=== PATIENT | female | born 1950 | race Caucasian/White ===

== ENCOUNTER → 2016-12-14 | Outpatient (CLI) | payer MEDICARE, OTHER ==
[~2016-12-14] MED LIST: ALPR.5T PO; DICL100G20 TOP; DICLOFENAC; FLUO20CA25 PO; OMEP20CA12 PO; TRAM50TA2 PO; TRAZ150T42 PO
--- NOTE | 2016-12-14 11:44 | Diagnostic Imaging Report ---
EXAMINATION: Ultrasound of the right shoulder. INDICATION: Lump. FINDINGS: There is a 5.3 x 2.3 x 4.9 cm mass anterior to the right proximal humerus. There is question of internal vascularity at its margin but it is uncertain if it is within this lesion. This could be related to hemorrhage or debris distending the subdeltoid bursa versus a solid mass. The margins appear lobulated and well defined, in favor of a nonaggressive process. IMPRESSION: Indeterminate 5.3 cm mass anterior to the proximal right humerus. Better evaluation with an MRI of the shoulder would be recommended. Dictated by: Dictated on workstation # [id number]
== END ==
LOC: RAD 10:52
PROVIDERS: ATTEND Family Medicine
DX: M89.9 Disorder of bone, unspecified (principal); N28.9 Disorder of kidney and ureter, unspecified
CPT/HCPCS: 76881

== ENCOUNTER → 2016-12-14 | Outpatient (CLI) | payer MEDICARE, OTHER ==
[~2016-12-14] MED LIST changes: +GADOBUTROL 10 MMOL/10 ML (GADAVIST) VIAL IV ONE
[2016-12-14 16:08] LABS: BLOOD UREA NITROGEN 9 MG/DL (7-18); BUN/CREATININE RATIO 10; CREATININE SERUM 0.87 MG/DL (0.60-1.30); GFR ESTIMATED > 60
--- NOTE | 2016-12-14 18:30 | Diagnostic Imaging Report ---
PROCEDURE: MRI upper extremity any joint with and without contrast right. TECHNIQUE: Multiplanar, multisequence pre and post contrast-enhanced MRI of the right upper extremity was accomplished. INDICATION: Further evaluation of mass in the anterior aspect of the right upper arm. COMPARISON: Ultrasound performed earlier same day. FINDINGS: There is a fatty mass located within the anterior aspect of the deltoid muscle. This mass has an ovoid configuration and measures 6.5 x 4.0 x 2.7 cm (cc x AP x TV). There is a single thin hairline septation in the inferior aspect of the mass, which does not enhance on postcontrast imaging. No solid nodular enhancement associated with the mass. 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 Deep and inferior margin of the lipoma drapes over the humerus. There is no destruction of the anterior humeral cortex. No focal osseous lesion. No regional lymphadenopathy. Imaging was tailored to evaluate the mass, and not optimized for evaluation of the remainder of the shoulder structures. Allowing for this, there is no high-grade partial or full-thickness rotator cuff tear. Supraspinatus tendinopathy is present. Long head of the biceps is intact. No evidence of displaced glenoid labral tear. There are degenerative changes in the glenohumeral joint inferiorly, which are characterized by subcortical cystic change in the glenoid. IMPRESSION: 1. The palpable mass corresponds to a benign appearing intramuscular fatty tumor located within the anterior aspect of the deltoid. 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 No enhancing soft tissue features to suggest liposarcoma. Consider consultation with an orthopedic oncologist for potential surgical management. Dictated by: Dictated on workstation # [id number]
== END ==
LOC: RAD 15:35
PROVIDERS: ATTEND Family Medicine
DX: D49.89 Neoplasm of unspecified behavior of other specified sites (principal); N28.9 Disorder of kidney and ureter, unspecified
CPT/HCPCS: 36415; 73223; 82565; 84520

== ENCOUNTER → 2017-02-19 | Outpatient (CLI) | payer MEDICARE, OTHER ==
[~2017-02-19] MED LIST changes: -GADOBUTROL 10 MMOL/10 ML (GADAVIST) VIAL IV ONE
--- NOTE | 2017-02-19 17:13 | Diagnostic Imaging Report ---
PROCEDURE: Lung cancer screening CT chest without contrast. TECHNIQUE: Multiple contiguous axial images were obtained through the chest without the use of intravenous contrast. This is performed with a low-dose protocol. INDICATION: Currently asymptomatic patient with 50 pack years history of smoking Comparison: 02/24/2015 Findings: Upper lobe predominant emphysema is seen in both lungs. There is no lung mass or suspicious nodule seen. The heart size is normal. There is no pericardial or pleural effusion. No mediastinal mass. No axillary lymphadenopathy is seen. The osseous structures demonstrate degenerative changes. IMPRESSION: Upper lobe predominant emphysema. No suspicious nodule seen. Lung Rads Category 2. Benign findings. Recommendations: Annual screening low-dose CT scan. Dictated by: Dictated on workstation # [id number]
== END ==
LOC: RAD 13:55
PROVIDERS: ATTEND Family Medicine
DX: Z12.2 Encounter for screening for malignant neoplasm of respiratory organs (principal); Z87.891 Personal history of nicotine dependence; J43.9 Emphysema, unspecified

== ENCOUNTER → 2018-09-23 | Outpatient (CLI) | payer MEDICARE, OTHER ==
[2018-09-23 09:31] LABS: BASOPHILS # (AUTO) 0.1 10^3/uL (0.0-0.1); BASOPHILS % (AUTO) 1 % (0-10); EOSINOPHILS # (AUTO) 0.3 10^3/uL (0.0-0.3); EOSINOPHILS % (AUTO) 3 % (0-10); HEMATOCRIT 42 % (35-52); HEMOGLOBIN 14.5 G/DL (11.5-16.0); LYMPHOCYTES # (AUTO) 2.5 X 10^3 (1.0-4.0); LYMPHOCYTES % (AUTO) 24 % (12-44); MEAN CORPUSCULAR HEMOGLOBIN 32 PG (25-34); MEAN CORPUSCULAR HGB CONC 35 G/DL (32-36); MEAN CORPUSCULAR VOLUME 93 FL (80-99); MEAN PLATELET VOLUME 8.8 FL (7.4-10.4); MONOCYTES # (AUTO) 0.8 X 10^3 (0.0-1.0); MONOCYTES % (AUTO) 8 % (0-12); NEUTROPHILS # (AUTO) 6.8 X 10^3 (1.8-7.8); NEUTROPHILS % (AUTO) 65 % (42-75); PLATELET COUNT 371 10^3/uL (130-400); RED BLOOD COUNT 4.52 10^6/uL (4.35-5.85); RED CELL DISTRIBUTION WIDTH 14.7 % (10.0-14.5); WHITE BLOOD COUNT 10.5 10^3/uL (4.3-11.0)
[2018-09-23 09:51] LABS: ALBUMIN 3.9 GM/DL (3.2-4.5); BILIRUBIN,TOTAL 0.6 MG/DL (0.1-1.0); CALCIUM 9.4 MG/DL (8.5-10.1); POTASSIUM 3.8 MMOL/L (3.6-5.0); TOTAL PROTEIN 6.5 GM/DL (6.4-8.2)
== END ==
LOC: LAB 09:15
PROVIDERS: ATTEND Family Medicine
DX: R53.83 Other fatigue (principal); R10.9 Unspecified abdominal pain
CPT/HCPCS: 36415; 80053; 85025

== ENCOUNTER → 2020-09-19 | Outpatient (CLI) | payer MEDICARE, OTHER ==
[~2020-09-19] MED LIST changes: +CATHETER FLUSH 10 ML SYR IV PRN; +HOLD METFORMIN - RECEIVED CONTRAST 20 ML VIAL IV SCH; +IOHEXOL 350 MG/ML 100 ML (OMNIPAQUE 350) VIAL IV ONE; +NS 100 ML (IVPB) BAG IV ONE
[2020-09-19 13:14] LABS: BASOPHILS % (AUTO) 1 % (0-10); EOSINOPHILS # (AUTO) 0.4 10^3/uL (0.0-0.3); EOSINOPHILS % (AUTO) 6 % (0-10); HEMATOCRIT 37 % (35-52); HEMOGLOBIN 11.8 g/dL (11.5-16.0); LYMPHOCYTES # (AUTO) 2.1 10^3/uL (1.0-4.0); LYMPHOCYTES % (AUTO) 32 % (12-44); MEAN CORPUSCULAR HEMOGLOBIN 31 pg (25-34); MEAN CORPUSCULAR HGB CONC 32 g/dL (32-36); MEAN CORPUSCULAR VOLUME 96 fL (80-99); MONOCYTES # (AUTO) 0.5 10^3/uL (0.0-1.0); MONOCYTES % (AUTO) 8 % (0-12); NEUTROPHILS # (AUTO) 3.6 10^3/uL (1.8-7.8); NEUTROPHILS % (AUTO) 54 % (42-75); PLATELET COUNT 332 10^3/uL (130-400); WHITE BLOOD COUNT 6.7 10^3/uL (4.3-11.0)
[2020-09-19 13:33] LABS: ALBUMIN 3.9 GM/DL (3.2-4.5); BILIRUBIN,TOTAL 0.4 MG/DL (0.1-1.0); CALCIUM 9.6 MG/DL (8.5-10.1); CREATININE SERUM 1.05 MG/DL (0.60-1.30); POTASSIUM 4.1 MMOL/L (3.6-5.0); TOTAL PROTEIN 7.3 GM/DL (6.4-8.2)
--- NOTE | 2020-09-19 14:55 | Diagnostic Imaging Report ---
PROCEDURE: CT abdomen and pelvis with and without contrast. TECHNIQUE: Precontrast acquisitions were acquired through the abdomen and pelvis. Multiple contiguous axial images were obtained through the abdomen and pelvis after the administration of intravenous contrast. Auto Exposure Controls were utilized during the CT exam to meet ALARA standards for radiation dose reduction. INDICATION: Upper land ower abdominal pain as well as nausea and constipation. Comparison is made with CT study performed 09/19/2018. The lung bases are clear. Liver is unremarkable. Gallbladder is surgically absent. Pancreas and spleen are unremarkable. No adrenal mass is detected. Kidneys are unremarkable. Patient appears to have undergone aortobifemoral surgery since prior exam. Aorta and the iliac and femoral limbs appear to be patent. Bowel loops appear to be nonobstructed. There is a large amount of stool in the cecum and ascending colon. Moderate stool in the transverse and descending colons noted. No free fluid or fluid collection is seen. The bladder is unremarkable. Bony structures are nonacute. A small fat-containing midline ventral hernias are present. IMPRESSION: Moderate stool suggestive of constipation. Postoperative changes aortobifemoral graft. No acute features identified. Dictated by: Dictated on workstation # [id number]
== END ==
LOC: RAD 12:48
PROVIDERS: ATTEND Family Medicine
DX: R10.11 Right upper quadrant pain (principal); K59.00 Constipation, unspecified; R11.0 Nausea
CPT/HCPCS: 36415; 74178; 80053; 83690; 85025

== ENCOUNTER → 2021-03-30 | Outpatient (CLI) | payer MEDICARE, OTHER ==
[~2021-03-30] MED LIST changes: -CATHETER FLUSH 10 ML SYR IV PRN; -HOLD METFORMIN - RECEIVED CONTRAST 20 ML VIAL IV SCH; -IOHEXOL 350 MG/ML 100 ML (OMNIPAQUE 350) VIAL IV ONE; -NS 100 ML (IVPB) BAG IV ONE
--- NOTE | 2021-03-30 13:50 | Diagnostic Imaging Report ---
EXAMINATION: US Right Lower Extremity Venous Duplex. TECHNIQUE: Multiple real-time grayscale images were obtained over the right lower extremity in various projections. Additional spectral analysis and color Doppler duplex images were also obtained. HISTORY: Right lower extremity swelling and pain. COMPARISON: None available. FINDINGS: The right common femoral vein, deep femoral vein, superficial femoral vein and popliteal vein are patent with normal adame scale and doppler appearance. There is normal respiratory variation and augmentation. IMPRESSION: 1. No DVT of the right lower extremity. Dictated by: Dictated on workstation # [id number]
== END ==
LOC: RAD 12:45
PROVIDERS: ATTEND Family Medicine
DX: M79.89 Other specified soft tissue disorders (principal); M79.661 Pain in right lower leg; I10 Essential (primary) hypertension

== ENCOUNTER 2021-09-19 11:14 | Emergency (ER) | payer MEDICARE, OTHER ==
[~2021-09-19] VITALS: Ht 162 cm; Wt 77.0 kg
[2021-09-19] MEDS ORDERED: ASPIRIN 81 MG CHEW (CHILDREN'S ASA) PO ONE (11:30)
[2021-09-19 11:38] LABS: BASOPHILS % (AUTO) 0 % (0-10); EOSINOPHILS # (AUTO) 0.2 10^3/uL (0.0-0.3); EOSINOPHILS % (AUTO) 3 % (0-10); HEMATOCRIT 38 % (35-52); HEMOGLOBIN 12.5 g/dL (11.5-16.0); LYMPHOCYTES # (AUTO) 1.6 10^3/uL (1.0-4.0); LYMPHOCYTES % (AUTO) 23 % (12-44); MEAN CORPUSCULAR HEMOGLOBIN 30 pg (25-34); MEAN CORPUSCULAR HGB CONC 33 g/dL (32-36); MEAN CORPUSCULAR VOLUME 92 fL (80-99); MEAN PLATELET VOLUME 9.6 fL (9.0-12.2); MONOCYTES # (AUTO) 0.9 10^3/uL (0.0-1.0); MONOCYTES % (AUTO) 13 % (0-12); NEUTROPHILS # (AUTO) 4.1 10^3/uL (1.8-7.8); NEUTROPHILS % (AUTO) 60 % (42-75); PLATELET COUNT 181 10^3/uL (130-400); WHITE BLOOD COUNT 6.9 10^3/uL (4.3-11.0)
[2021-09-19 11:54] LABS: ALBUMIN 3.6 GM/DL (3.2-4.5)
[2021-09-19 11:55] LABS: POTASSIUM 4.1 MMOL/L (3.6-5.0)
[2021-09-19 11:56] LABS: CALCIUM 9.5 MG/DL (8.5-10.1)
[2021-09-19 11:57] LABS: PROTHROMBIN TIME PATIENT 13.7 SEC (12.2-14.7); TOTAL PROTEIN 6.7 GM/DL (6.4-8.2)
--- NOTE | 2021-09-19 11:58 | Diagnostic Imaging Report ---
INDICATION: Chest pain. EXAMINATION: Portable chest at 11:41 a.m. FINDINGS: Heart size and pulmonary vascularity are normal. Lungs are clear. There are no effusions or pneumothoraces. IMPRESSION: No acute abnormalities in the chest. Dictated by: Dictated on workstation # [id number]
[2021-09-19 11:59] LABS: BILIRUBIN,TOTAL 0.6 MG/DL (0.1-1.0)
[2021-09-19 12:01] LABS: CREATININE SERUM 0.97 MG/DL (0.60-1.30)
[2021-09-19 12:04] LABS: MAGNESIUM 1.8 MG/DL (1.6-2.4)
--- NOTE | 2021-09-19 12:05 | ED General ---
General Chief Complaint: Chest Pain Stated Complaint: CP,DIZZINESS,LIGHHEADED Source of Information: Patient Exam Limitations: No Limitations (RORY HARVEY APRN) History of Present Illness Date Seen by Provider: Sep 19, 2021 Time Seen by Provider: 12:02 Initial Comments To ER with several complaints. Was sent here from Dr. Arrington's office. Month of tired weak and dizziness. The dizziness seems to be worsening. She has occasional headaches. She has occasional tremors of the left hand when she tries to hold something but not of the right hand. She has occasional cramping of the right hand but not the left hand. She has low back pain seems to be worsened by not moving such as when awakening in the morning to get out of bed. Once she is up and moving it seems to be a bit better. No abdominal pain. She had repair of abdominal aortic aneurysm by Dr. Vicente Shea at [facility] in [place] in July 2020. She reports intermittent chest pains. This starts in the left side of her chest very sharp in nature last only a few seconds and radiates straight across to the right side of her chest. Timing/Duration: 1-2 Days Severity: Moderate Associated Systoms: Chest Pain; No Cough, No Diaphoresis; Headaches (RORY HARVEY APRN) Allergies and Home Medications Allergies Coded Allergies: prednisone (Verified Adverse Reaction, Mild, HIVES, 06/05/13) Patient Home Medication List Home Medication List Reviewed: Yes (RORY HARVEY APRN) Alprazolam (Xanax) 0.5 Mg Tablet, 1 TAB PO BID PRN, (Reported) Entered as Reported by: GRAY PARTIDA on 06/05/13 154 Diclofenac Sod (Voltaren Gel (Non-Formulary)) 100 Gm Gel, 100 GM TOP QID PRN, (Reported) Entered as Reported by: GRAY PARTIDA on 06/05/13 154 Fluoxetine Hcl (Fluoxetine Hcl) 20 Mg Capsule, 1 EACH PO DAILY, (Reported) Entered as Reported by: GRAY PARTIDA on 06/05/13 154 Omeprazole (Omeprazole) 20 Mg Capsule., 1 CAP PO DAILY, (Reported) Entered as Reported by: GRAY PARTIDA on 06/05/13 154 Tramadol Hcl (Tramadol Hcl) 50 Mg Tablet, 50-100 MG PO QID PRN, (Reported) Entered as Reported by: GRAY PARTIDA on 06/05/131545 Trazodone Hcl (Trazodone Hcl) 150 Mg Tablet, 150 MG PO HS, (Reported) Entered as Reported by: GRAY PARTIDA on 06/05/131545 [Diclofenac] , (Reported) Entered as Reported by: GRAY PARTIDA on 06/05/131545 Review of Systems Review of Systems Constitutional: see HPI; No chills; dizziness; No fever; malaise, weakness EENTM: see HPI Respiratory: no symptoms reported; No hemoptysis, No short of breath Cardiovascular: see HPI, chest pain Genitourinary: no symptoms reported Musculoskeletal: no symptoms reported Skin: no symptoms reported Psychiatric/Neurological: No Symptoms Reported Hematologic/Lymphatic: No Symptoms Reported Immunological/Allergic: no symptoms reported (RORY HARVEY APRN) Past Tllscwk-Atknyz-Gxepxg Hx Past Medical History Reproductive Disorders: No Arthritis, Fibromyalgia Depression (RORY HARVEY APRN) Physical Exam Vital Signs Vital Signs - First Documented 09/19/21 11:20 Temp 36.1 Pulse 101 Resp 20 B/P (MAP) 162/77 (105) Pulse Ox 100 O2 Delivery Room Air (CHASE LARRY MD) Vital Signs Capillary Refill : (RORY HARVEY APRN) Height, Weight, BMI Height: 5'7.00" Weight: 154lbs. oz. 69.099881kx; BMI Method:Stated General Appearance: No Apparent Distress, WD/WN, Other (Alert and oriented no distress. Noted to be in ventricular bigeminy on cardiac cath technician with a rate of 112. She denies any sensation of palpitations or current chest pain.) Eyes: Bilateral Eye Normal Inspection, Bilateral Eye PERRL, Bilateral Eye EOMI HEENT: PERRL/EOMI, TMs Normal Neck: Full Range of Motion, Normal Inspection Respiratory: No Accessory Muscle Use, No Respiratory Distress Cardiovascular: Regular Rate, Rhythm, Normal Peripheral Pulses Gastrointestinal: Normal Bowel Sounds, Non Tender, Soft Extremity: Normal Capillary Refill, Normal Inspection Neurologic/Psychiatric: Alert, Oriented x3 Skin: Normal Color, Warm/Dry (RORY HARVEY APRN) Progress/Results/Core Measures Suspected Sepsis SIRS Temperature: Pulse: Respiratory Rate: Laboratory Tests 1/4/22 11:05: White Blood Count 6.9 Blood Pressure / Mean: Laboratory Tests 09/19/21 11:05: Creatinine 0.97, INR Comment 1.0, Platelet Count 181, Total Bilirubin 0.6 (RORY HARVEY APRN) Results/Orders Lab Results Laboratory Tests Test 09/19/21 11:05 09/19/21 12:52 Range/Units White Blood Count 6.9 4.3-11.0 10^3/uL Red Blood Count 4.16 3.80-5.11 10^6/uL Hemoglobin 12.5 11.5-16.0 g/dL Hematocrit 38 35-52 % Mean Corpuscular Volume 92 80-99 fL Mean Corpuscular Hemoglobin 30 25-34 pg Mean Corpuscular Hemoglobin Concent 33 32-36 g/dL Red Cell Distribution Width 13.6 10.0-14.5 % Platelet Count 181 130-400 10^3/uL Mean Platelet Volume 9.6 9.0-12.2 fL Immature Granulocyte % (Auto) 0 % Neutrophils (%) (Auto) 60 42-75 % Lymphocytes (%) (Auto) 23 12-44 % Monocytes (%) (Auto) 13 H 0-12 % Eosinophils (%) (Auto) 3 0-10 % Basophils (%) (Auto) 0 0-10 % Neutrophils # (Auto) 4.1 1.8-7.8 10^3/uL Lymphocytes # (Auto) 1.6 1.0-4.0 10^3/uL Monocytes # (Auto) 0.9 0.0-1.0 10^3/uL Eosinophils # (Auto) 0.2 0.0-0.3 10^3/uL Basophils # (Auto) 0.0 0.0-0.1 10^3/uL Immature Granulocyte # (Auto) 0.0 0.0-0.1 10^3/uL Prothrombin Time 13.7 12.2-14.7 SEC INR Comment 1.0 0.8-1.4 Activated Partial Thromboplast Time 31 24-35 SEC Sodium Level 139 135-145 MMOL/L Potassium Level 4.1 3.6-5.0 MMOL/L Chloride Level 106 98-107 MMOL/L Carbon Dioxide Level 25 21-32 MMOL/L Anion Gap 8 5-14 MMOL/L Blood Urea Nitrogen 25 H 7-18 MG/DL Creatinine 0.97 0.60-1.30 MG/DL Estimat Glomerular Filtration Rate 56 BUN/Creatinine Ratio 26 Glucose Level 137 H 70-105 MG/DL Calcium Level 9.5 8.5-10.1 MG/DL Corrected Calcium 9.8 8.5-10.1 MG/DL Magnesium Level 1.8 1.6-2.4 MG/DL Total Bilirubin 0.6 0.1-1.0 MG/DL Aspartate Amino Transf (AST/SGOT) 22 5-34 U/L Alanine Aminotransferase (ALT/SGPT) 29 0-55 U/L Alkaline Phosphatase 74 40-136 U/L Myoglobin 65.8 10.0-92.0 NG/ML Troponin I < 0.028 <0.028 NG/ML B-Type Natriuretic Peptide 148.4 H <100.0 PG/ML Total Protein 6.7 6.4-8.2 GM/DL Albumin 3.6 3.2-4.5 GM/DL SARS-CoV-2 RNA (RT-PCR) Negative Negative (CHASE LARRY MD) Medications Given in ED Current Medications Medications Dose Ordered Sig/Kashif Route Start Time Stop Time Status Last Admin Dose Admin Aspirin 324 mg ONCE ONCE PO 09/19/21 11:30 09/19/21 11:31 DC 09/19/21 12:51 324 MG (CHASE LARRY MD) Vital Signs/I&O 09/19/21 09/19/21 11:20 13:55 Temp 36.1 Pulse 101 105 Resp 20 14 B/P (MAP) 162/77 (105) 136/84 Pulse Ox 100 92 O2 Delivery Room Air Room Air (CHASE LARRY MD) Vital Signs/I&O Capillary Refill : (RORY HARVEY APRN) Departure Communication (Admissions) [id number] spoke with Dr. Brasher from cardiology, agrees with a negative troponin, no current chest pain and no ischemic changes on EKG other than the ventricular bigeminy with normal blood pressure she can go home and follow-up outpatient. She is on carvedilol 3.125 mg p.o. twice daily. Will double that. Her blood pressure is fine. I am giving her a liter of fluids. I will set her up with a Holter monitor. I will make an appointment with Dr. Brasher for her and Dr. Arrington will see her again in the morning. EKG shows sinus tachycardia with ventricular bigeminy rate of 112. The sinus beats are without ST segment change or T wave inversion. She is absent any chest pain. Family Conversation NAME: SHANNAN MURPHY MED REC#: [id number] PT STATUS: REG ER : 1950 PHYSICIAN: RORY HARVEY APRN ADMIT DATE: 09/19/21/ER Draft Date of Exam:09/19/21 CT HEAD WO INDICATION: Left arm tremor and headaches. TECHNIQUE: Multiple contiguous axial images were obtained through the brain without the use of intravenous contrast. Auto Exposure Controls were utilized during the CT exam to meet ALARA standards for radiation dose reduction. COMPARISON: There is no previous study for comparison. FINDINGS: There are no extra-axial fluid collections. No intracranial hemorrhage. No intracranial mass or mass effect. No midline shift. The ventricles are normal in size and position. There were no focal parenchymal abnormalities in the brain. Calvarial windows are unremarkable. IMPRESSION: Negative noncontrast brain CT. Dictated on workstation # [id number] Dict: 09/19/21 1230 Trans: 09/19/21 1233 [id number] Interpreted by: DANY MCINTOSH MD Electronically signed by: NAME: SHANNAN MURPHY MED REC#: [id number] PT STATUS: REG ER : 1950 PHYSICIAN: RORY HARVEY APRN ADMIT DATE: 09/19/21/ER Draft Date of Exam:09/19/21 CHEST 1 VIEW, AP/PA ONLY INDICATION: Chest pain. EXAMINATION: Portable chest at 11:41 a.m. FINDINGS: Heart size and pulmonary vascularity are normal. Lungs are clear. There are no effusions or pneumothoraces. IMPRESSION: No acute abnormalities in the chest. Dictated on workstation # [id number] Dict: 09/19/21 1155 Trans: 09/19/21 1158 [id number] Interpreted by: AMBER MINAYA MD Electronically signed by: (RORY HARVEY APRN) Impression Primary Impression: Ventricular bigeminy Additional Impression: General weakness Disposition: 01 HOME, SELF-CARE Condition: Stable Departure-Patient Inst. Decision time for Depature: 13:02 (RORY HARVEY APRN) Referrals: SHANNON ARRINGTON DO (PCP/Family) Primary Care Physician MIKE BRASHER JR, MD Add. Discharge Instructions: 1. I made an appointment for you with Dr. Brasher from cardiology here in [place] on September 29 at 1:[address] Arrington would like to see you tomorrow morning for recheck. Call today for a time. Were going to increase your carvedilol dosage from 3.125 mg twice a day up to 6.25 mg twice a day (doubling the dose.) All discharge instructions reviewed with patient and/or family. Voiced understanding. ATTENDING PHYSICIAN NOTE: I was physically present as attending physician in the emergency department during the care of this patient, but I was not directly involved in the decision making or delivery of care for this patient. (CHASE LARRY MD) Copy Copies To 1: SHANNON ARRINGTON DO; MIKE BRASHER JR, MD BATES, PETER J APRN Sep 19, 2021 12:05 CHASE LARRY MD Sep 19, 2021 17:35
--- NOTE | 2021-09-19 12:33 | Diagnostic Imaging Report ---
INDICATION: Left arm tremor and headaches. TECHNIQUE: Multiple contiguous axial images were obtained through the brain without the use of intravenous contrast. Auto Exposure Controls were utilized during the CT exam to meet ALARA standards for radiation dose reduction. COMPARISON: There is no previous study for comparison. FINDINGS: There are no extra-axial fluid collections. No intracranial hemorrhage. No intracranial mass or mass effect. No midline shift. The ventricles are normal in size and position. There were no focal parenchymal abnormalities in the brain. Calvarial windows are unremarkable. IMPRESSION: Negative noncontrast brain CT. Dictated by: Dictated on workstation # [id number]
[2021-09-19] MEDS ORDERED: LACTATED RINGERS 1,000 ML IV SCH (13:00)
[2021-09-19 13:55] VITALS: BP 136/84
== END 2021-09-19 13:37 | disposition home or self-care (01) ==
LOC: EDUNIT# 11:14 → ER 11:16
DX: R00.8 Other abnormalities of heart beat (principal); R53.1 Weakness; F32.9 Major depressive disorder, single episode, unspecified; Z79.899 Other long term (current) drug therapy
CPT/HCPCS: 36415; 70450; 71045; 80053; 83735; 83874; 83880; 84484; 85025; 85610; 85730; 87635; 87636; 93005; 93041

== ENCOUNTER → 2021-09-19 | Outpatient (CLI) | payer MEDICARE, OTHER | LOC: CARD 14:00 | PROVIDERS: ATTEND Nurse Practitioner Family | DX: I49.8 Other specified cardiac arrhythmias (principal); R00.8 Other abnormalities of heart beat | CPT/HCPCS: 93225; 93226 ==

== ENCOUNTER → 2021-09-25 | Outpatient (CLI) | payer MEDICARE, OTHER ==
--- NOTE | 2021-09-25 10:05 | Diagnostic Imaging Report ---
PROCEDURE: MR imaging cervical spine without contrast. TECHNIQUE: Multiplanar, multisequence MR imaging of the cervical spine was performed without contrast. INDICATION: Right hand pain, cramping and shaking. EXAMINATION: Cervical spine MRI without contrast 09/25/2021. FINDINGS: The cervical medullary junction is unremarkable. Visualized brain unremarkable. The cord as seen demonstrates normal signal intensity. There is a mild of increased lordosis of the cervical spine perhaps positional. There are no significant subluxations. There is minimal grade 1 anterolisthesis at C7-T1 and T1-T2. Remaining alignment is preserved. Vertebral body heights maintained. C2-C3: Unremarkable. C3-C4: There is bilateral facet hypertrophy with secondary bilateral moderate to severe neural foraminal stenosis left worse than right. There is a mild spur disc complex with secondary mild central stenosis. C4-C5: There is bilateral facet hypertrophy right worse than left with secondary bilateral moderate to severe neural foraminal stenosis. There is a mild right paracentral spur disc complex with secondary moderate central stenosis. C5-C6: There is bilateral facet hypertrophy. There is a left paracentral disc protrusion. There is mild to moderate central and bilateral neural foraminal stenosis. C6-C7: There is a broad-based spur disc complex with bilateral facet hypertrophy. There is secondary moderate to severe left neural foraminal stenosis with moderate narrowing on the right. There is moderate central stenosis. C7-T1: Unremarkable. The visualized prevertebral soft tissues appear unremarkable. IMPRESSION: 1. Multilevel diffuse degenerative disease as discussed above. Dictated by: Dictated on workstation # [id number]
== END ==
LOC: RAD 08:45
PROVIDERS: ATTEND Family Medicine
DX: M47.812 Spondylosis without myelopathy or radiculopathy, cervical region (principal); M50.222 Other cervical disc displacement at C5-C6 level; M48.02 Spinal stenosis, cervical region; M40.40 Postural lordosis, site unspecified; M46.02 Spinal enthesopathy, cervical region
CPT/HCPCS: 72141

== ENCOUNTER → 2021-10-19 | Outpatient (CLI) | payer MEDICARE, OTHER ==
[~2021-10-19] VITALS: Ht 162 cm; Wt 77.0 kg
[~2021-10-19] MED LIST changes: +REGADENOSON 0.4 MG/5 ML SYR (LEXISCAN) IV ONE
[2021-10-19] MEDS: CATHETER FLUSH 10 ML SYR IV PRN ×2 (11:25→13:07)
[2021-10-19 12:56] VITALS: BP 142/76
--- NOTE | 2021-10-20 08:44 | NUCLEAR STRESS TEST ---
REGADENOSON NUCLEAR STRESS Date of procedure: 10/19/2021. Primary care provider: Benjamin Meza DO Admitting physician: Davis Brasher Jr., MD. INDICATION: Ventricular premature complexes. BASELINE ELECTROCARDIOGRAM: Sinus rhythm with low voltage in the precordial leads. STRESS TEST PROCEDURE: The patient was administered 0.4 mg of intravenous Reg adenoson. The resting heart rate was 65 bpm and the peak heart rate was 99 bpm. The resting blood pressure was 142/76 mmHg and the minimum blood pressure was 118/71 mmHg. This represents a normal heart rate and a normal blood pressure response to Regadenoson. The test was stopped due to the protocol. There was no chest discomfort during the test. There were no arrhythmias during the test. There were no significant stress induced electrocardiogram changes. NUCLEAR PROCEDURE: The patient was administered 10.3 mCi of intravenous technetium 99m Tetrofosmin at rest for the rest images. The patient was subsequently administered 31.4 mCi of intravenous technetium 99m Tetrofosmin at peak stress for the stress images. Following an appropriate wait after each injection, imaging was obtained. The images were subsequently processed and reformatted in the usual views. Gated imaging was obtained. The image quality was adequate with a mild degree of gastrointestinal attenuation artifact. CT attenuation correction was used as a adjunct to standard imaging. Both the corrected and uncorrected images were reviewed for interpretation. NUCLEAR RESULTS: There was normal myocardial perfusion in all segments without evidence of infarction or ischemia. There was normal left ventricular chamber size with an end-diastolic volume of 54 mL and an end-systolic volume of 13 mL. There was no evidence of transient ischemic dilatation. The TID ratio was 0.97. There was normal wall motion in all segments with a calculated ejection fraction of 76%. IMPRESSION: 1. Normal heart rate and blood pressure response to regadenoson. 2. There was no chest discomfort, arrhythmias, or electrocardiogram changes during the test. 3. There was normal myocardial perfusion in all segments without evidence of infarction or ischemia. 4. There was normal wall motion in all segments with a calculated ejection fraction of 76%. Certain portions of this document may have been dictated utilizing voice recognition technology. Inherent to this technology, typographical and grammatical errors may exist. As much as I am diligent to identify and correct these mistakes, some errors may remain in the document. DAVIS BRASHER JR, MD Oct 20, 2021 08:44
== END ==
LOC: CARD 11:00
PROVIDERS: ATTEND Internal Medicine Cardiovascular Disease
DX: I49.3 Ventricular premature depolarization (principal); I51.7 Cardiomegaly
CPT/HCPCS: 78452; 93017; 93306; A9502

== ENCOUNTER → 2021-10-25 | Outpatient (CLI) | payer MEDICARE, OTHER ==
[~2021-10-25] MED LIST changes: -REGADENOSON 0.4 MG/5 ML SYR (LEXISCAN) IV ONE
[2021-10-25 16:51] LABS: TSH (THYROID ANALYZER) 0.01 UIU/ML (0.35-4.94)
[2021-10-25 18:19] LABS: FREE T4 (FREE THYROXINE) 0.75 NG/DL (0.70-1.48)
== END ==
LOC: LAB 15:53
PROVIDERS: ATTEND Family Medicine
DX: R94.6 Abnormal results of thyroid function studies (principal)
CPT/HCPCS: 36415; 84439; 84443

== ENCOUNTER → 2022-03-15 | Outpatient (CLI) | payer MEDICARE, OTHER ==
[2022-03-15 08:54] LABS: HEMATOCRIT 33 % (35-52); HEMOGLOBIN 10.9 g/dL (11.5-16.0); MEAN CORPUSCULAR HEMOGLOBIN 31 pg (25-34); MEAN CORPUSCULAR HGB CONC 33 g/dL (32-36); MEAN CORPUSCULAR VOLUME 92 fL (80-99); MEAN PLATELET VOLUME 9.7 fL (9.0-12.2); PLATELET COUNT 200 10^3/uL (130-400); WHITE BLOOD COUNT 4.4 10^3/uL (4.3-11.0)
[2022-03-15 09:23] LABS: ALBUMIN 3.4 GM/DL (3.2-4.5); BILIRUBIN,TOTAL 0.8 MG/DL (0.1-1.0); CALCIUM 9.5 MG/DL (8.5-10.1); CREATININE SERUM 0.99 MG/DL (0.60-1.30)
[2022-03-15 11:11] LABS: FREE T4 (FREE THYROXINE) 2.26 NG/DL (0.70-1.48)
== END ==
LOC: LAB 08:19
PROVIDERS: ATTEND Family Medicine
DX: R10.9 Unspecified abdominal pain (principal)
CPT/HCPCS: 36415; 80053; 82150; 84439; 84443; 85027

== ENCOUNTER → 2022-03-26 | Outpatient (CLI) | payer MEDICARE, OTHER ==
--- NOTE | 2022-03-26 17:12 | Diagnostic Imaging Report ---
PROCEDURE: US Thyroid. TECHNIQUE: Multiple Real-time grayscale images were obtained of the thyroid in various projections. INDICATION: Hyperthyroidism. FINDINGS: The right lobe measures 4.8 x 1.6 x 1.8 cm. The left lobe measures 4.2 x 2.2 x 1.5 cm. Both lobes are quite heterogeneous. No discrete nodules are seen. No significant hypervascularity is noted. IMPRESSION: Mildly enlarged heterogeneous thyroid without discrete nodules demonstrated. Dictated by: Dictated on workstation # [id number]
--- NOTE | 2022-03-26 17:49 | Diagnostic Imaging Report ---
Indication: Left hip pain. Time of Exam: 3:00 PM 2 views of the left hip demonstrate normal femoral acetabular alignment. Femoral head and neck are intact. No fractures are seen. A left-sided rami are intact. Joint spaces are fairly well-maintained although there is some spurring at the superolateral aspect of the acetabulum. Impression: Mild degenerative changes. No acute bony abnormality is detected. Dictated by: Dictated on workstation # [id number]
--- NOTE | 2022-03-27 09:19 | Diagnostic Imaging Report ---
INDICATION: Routine screening. COMPARISON: 02/26/2019 and 02/17/2018. TECHNIQUE: 2D and 3D bilateral screening mammography was performed with CAD. FINDINGS: Both breasts are heterogeneously dense, limiting the sensitivity of mammography. The parenchymal pattern is stable. There are benign calcifications present. No mass or malignant-appearing microcalcifications are seen. The axillae are unremarkable. IMPRESSION: No mammographic features suspicious for malignancy are identified. ACR BI-RADS Category 2: Benign findings. Result letter will be mailed to the patient. Note: At least 10% of breast cancer is not imaged by mammography. Dictated by: Dictated on workstation # [id number]
== END ==
LOC: RAD 14:11
PROVIDERS: ATTEND Family Medicine
DX: Z12.31 Encounter for screening mammogram for malignant neoplasm of breast (principal); M16.12 Unilateral primary osteoarthritis, left hip; E05.00 Thyrotoxicosis with diffuse goiter without thyrotoxic crisis or storm
CPT/HCPCS: 73502; 76536; 77063; 77067